=== PATIENT | female | born 1995 | race Caucasian/White ===

== ENCOUNTER 2017-06-23 14:35 | Emergency (ER) | payer OTHER, BC ==
[~2017-06-23] VITALS: Ht 152.4 cm; Wt 43.5 kg
[~2017-06-23 14:35] MED LIST: CLONAZEPAM2 M1; GUAIFENESIN600 MG
[2017-06-23] MEDS ORDERED: VOLTAREN-XR100 MG PO (15:05)
== END 2017-06-23 17:20 | disposition home or self-care (01) ==
LOC: ED 14:35
DX: M54.2 Cervicalgia (principal); M79.1 Myalgia; F17.200 Nicotine dependence, unspecified, uncomplicated; Z88.8 Allergy status to other drugs, medicaments and biological substances; Z79.899 Other long term (current) drug therapy
CPT/HCPCS: 72125; 99284

== ENCOUNTER 2020-12-31 14:26 | Emergency (ER) | payer OTHER ==
[~2020-12-31] VITALS: Ht 154.9 cm; Wt 43.6 kg
[~2020-12-31 14:26] MED LIST changes: +VOLTAREN-XR100 MG PO
--- OUTSIDE RECORDS SUMMARY | 2020-12-31 14:34 | XMS ---
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 Rad has no Care Guidelines for this patient. Linh VISIT COUNT (12 MO.) 1 [facility] Tay TOTAL 1 NOTE: Visits indicate total known visits. ED/UCC VISIT TRACKING (12 MO.) 12/31/2020 14:27 [facility] [place] TYPE: Emergency COMPLAINT: - CHEST CONGESTION, SOB INPATIENT VISIT TRACKING (12 MO.) No inpatient visits to display in this time frame [email or web address]
[2020-12-31] MEDS ORDERED: MELATONIN10 MG PO (15:18)
== END 2020-12-31 17:55 | disposition home or self-care (01) ==
LOC: ED 14:26
DX: U07.1 COVID-19 (principal); F17.200 Nicotine dependence, unspecified, uncomplicated; Z88.8 Allergy status to other drugs, medicaments and biological substances; Z79.899 Other long term (current) drug therapy
CPT/HCPCS: 71045; 80053; 83735; 84703; 85025; 85379; 99283-25

== ENCOUNTER 2021-04-24 13:33 | Emergency (ER) | payer OTHER ==
[~2021-04-24] VITALS: Ht 154.9 cm; Wt 43.6 kg
[~2021-04-24 13:33] MED LIST changes: +MELATONIN10 MG PO
--- OUTSIDE RECORDS SUMMARY | 2021-04-24 13:40 | XMS ---
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 Rad has no Care Guidelines for this patient. Linh VISIT COUNT (12 MO.) 2 MICHELE Tay TOTAL 2 NOTE: Visits indicate total known visits. ED/UCC VISIT TRACKING (12 MO.) 04/24/2021 13:33 [facility] [place] TYPE: Emergency COMPLAINT: - POSS BLOODCLOT 12/31/2020 14:[address] [facility] [place] TYPE: Emergency COMPLAINT: - CHEST CONGESTION, SOB DIAGNOSES: - Nicotine dependence, unspecified, uncomplicated - Shortness of breath - Allergy status to other drugs, medicaments and biological substances - COVID-19 - Other management manager (current) drug therapy INPATIENT VISIT TRACKING (12 MO.) No inpatient visits to display in this time frame [email or web address]
[2021-04-24] MEDS ORDERED: BENADRYL25 MG PO (14:27)
[2021-04-24] MEDS ORDERED: PREDNISONE20 MG PO (17:11)
== END 2021-04-24 17:27 | disposition home or self-care (01) ==
LOC: ED 13:33
DX: J45.909 Unspecified asthma, uncomplicated (principal); F17.200 Nicotine dependence, unspecified, uncomplicated; Z88.0 Allergy status to penicillin; Z88.8 Allergy status to other drugs, medicaments and biological substances; Z79.899 Other long term (current) drug therapy
CPT/HCPCS: 71046; 99284-25

== ENCOUNTER 2021-05-24 18:12 | Emergency (ER) | payer OTHER ==
[~2021-05-24] VITALS: Ht 154.9 cm; Wt 43.6 kg
[~2021-05-24 18:12] MED LIST changes: +BENADRYL25 MG PO; +PREDNISONE20 MG PO
--- OUTSIDE RECORDS SUMMARY | 2021-05-24 18:20 | XMS ---
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 Rad has no Care Guidelines for this patient. [facility] MO[facility] NOTE: Visits indicate total known visits. [place] [place] (12 MO.) 05[facility]2021 18[facility] COMPLAINT: - SHORTNESS OF BREATH 04/24/2021 13:33 [facility] [place] TYPE: Emergency COMPLAINT: - POSS BLOODCLOT DIAGNOSES: - Unspecified asthma, uncomplicated - COUGH, UNSPECIFIED - Nicotine dependence, unspecified, uncomplicated - Allergy status to penicillin - Allergy status to other drugs, medicaments and biological substances - Other medical terminologist (current) drug therapy 12/31/2020 14:27 [facility] [place] TYPE: Emergency COMPLAINT: - CHEST CONGESTION, SOB DIAGNOSES: - Nicotine dependence, unspecified, uncomplicated - Shortness of breath - Allergy status to other drugs, medicaments and biological substances - COVID-19 - Other medical terminologist (current) drug therapy INPATIENT VISIT TRACKING (12 MO.) No inpatient visits to display in this time frame [email or web address]
[2021-05-24] MEDS ORDERED: VENTOLIN HFA18 GM INH (19:54)
[2021-05-24] MEDS ORDERED: FLOVENT HFA12 G1 INH (19:54)
[2021-05-24] MEDS ORDERED: PREDNISONE20 MG PO (19:54)
== END 2021-05-24 20:28 | disposition home or self-care (01) ==
LOC: ED 18:12
DX: J45.901 Unspecified asthma with (acute) exacerbation (principal); F17.200 Nicotine dependence, unspecified, uncomplicated; Z88.0 Allergy status to penicillin; Z88.8 Allergy status to other drugs, medicaments and biological substances; Z79.899 Other long term (current) drug therapy
CPT/HCPCS: 36415; 80048; 85025; 94640; 96374; 99284-25; J2930

== ENCOUNTER 2022-01-30 00:38 | Emergency (ER) | payer SELFPAY ==
[~2022-01-30] VITALS: Ht 154.9 cm; Wt 43.6 kg
[~2022-01-30 00:38] MED LIST changes: +FLOVENT HFA12 G1 INH; +VENTOLIN HFA18 GM INH
[2022-01-30] MEDS ORDERED: FLOVENT HFA12 GM INH (11:55)
[2022-01-30] MEDS ORDERED: VENTOLIN HFA18 GM INH (11:55)
[2022-01-30] MEDS ORDERED: BENZONATATE100 MG PO (12:19)
[2022-01-31] MEDS ORDERED: NICOTINE PATCH1 EACH TD (10:35)
[2022-01-31] MEDS ORDERED: AZITHROMYCIN250 MG PO (10:38)
[2022-01-31] MEDS ORDERED: PREDNISONE20 MG PO (10:39)
[2022-01-31] MEDS ORDERED: IPRAT-ALBUT 0.5-3 ML INH (10:52)
[2022-01-31] MEDS ORDERED: BENZONATATE100 MG PO (10:53)
== END 2022-01-30 02:57 | disposition home or self-care (01) ==
LOC: ED 00:38
DX: J45.901 Unspecified asthma with (acute) exacerbation (principal); Z20.822 Contact with and (suspected) exposure to COVID-19; Z88.0 Allergy status to penicillin; Z88.8 Allergy status to other drugs, medicaments and biological substances; Z79.899 Other long term (current) drug therapy
CPT/HCPCS: 71045; 82803; 87502; 94640; 94645; 96374; 96375; 99285-25; C9803; J2930; J3475; U0003